=== PATIENT | male | born 1990 | race Caucasian/White ===

== ENCOUNTER 2019-04-07 04:21 | Emergency (ER) | payer OTHER ==
[~2019-04-07] VITALS: Ht 172.7 cm; Wt 95.3 kg
[2019-04-07] MEDS ORDERED: PROAIR HFA8.5 GM INH (04:33)
[2019-04-07] MEDS ORDERED: PREVACID30 MG PO (04:33)
[2019-04-07] MEDS ORDERED: HYDROCODON-ACE1 EAC7 PO (05:27)
[2019-04-07] MEDS ORDERED: BUTALB-APAP-CA1 EACH PO (05:27)
[2019-04-07 05:31] VITALS: BP 142/92
== END 2019-04-07 05:31 | disposition home or self-care (01) ==
LOC: M.ERS 04:21
DX: R51 Headache (principal); V89.2XXA Person injured in unspecified motor-vehicle accident, traffic, initial encounter; Y93.89 Activity, other specified; Y92.89 Other specified places as the place of occurrence of the external cause; Y99.8 Other external cause status